=== PATIENT | male | born 1965 | race Caucasian/White ===

== ENCOUNTER → 2016-06-09 | Outpatient (CLI) | payer MEDICARE, OTHER ==
[~2016-06-09] MED LIST: AMBIEN10 MG PO; ANSAID100 MG; BACTRIM,SEPT1 TABLET PO; CHRONULAC,CEPHUL1 ML PO; CROMOLYN SODIUM10 ML BOTH EYES; FENOFIBRATE160 M1 PO; FLONASE16 G1 BOTH NARES; GLIPIZIDE5 MG PO; HYDROCHLOROTH12.5 M3 PO; INDOCIN25 MG PO; KETOCONAZOLE60 GM TP; KLONOPIN1 MG PO; LEXAPRO10 MG PO; LISINOPRIL-HCT1 EACH PO; MS CONTIN,ORAMO15 M1 PO; PERCOCET 5-3251 EACH PO; PERCOCET 5/31 TABLET PO; PREDNISONE20 MG PO; PRILOSEC OTC20 MG PO; PRILOSEC40 MG PO; SIMVASTATIN10 MG PO; TIZANIDINE HCL4 MG PO; VALIUM10 MG; VALIUM5 MG PO; ZYRTEC10 M2 PO; ativan
== END | disposition home or self-care (01) ==
LOC: CDC 09:06
DX: Z01.810 Encounter for preprocedural cardiovascular examination (principal); G56.01 Carpal tunnel syndrome, right upper limb
CPT/HCPCS: 93000